=== PATIENT | female | born 1965 | race Caucasian/White ===

== ENCOUNTER → 2016-09-06 | Outpatient (CLI) | payer OTHER ==
[~2016-09-06] MED LIST: ACYCLOVIR 400400 MG PO; LOTRIMIN AF12 GM TP; NOHOMEMEDICATIONS; NORCO 5-325 TA1 EACH PO; NORFLEX100 MG PO; PHENERGAN 25 MG25 M1 PO; PRILOSEC40 MG PO; ULTRAM 50MG TAB50 MG PO; VICODIN 5-5001 EACH PO
== END ==
LOC: RAD 13:40
DX: Z12.31 Encounter for screening mammogram for malignant neoplasm of breast (principal)

== ENCOUNTER → 2016-12-19 | Outpatient (CLI) | payer OTHER | LOC: RAD 12:05 | DX: M25.511 Pain in right shoulder (principal); M25.561 Pain in right knee ==

== ENCOUNTER → 2019-05-25 | Outpatient (CLI) | payer OTHER | LOC: BC 10:22 | DX: Z12.31 Encounter for screening mammogram for malignant neoplasm of breast (principal) ==

== ENCOUNTER → 2019-05-28 | Outpatient (CLI) | payer OTHER | LOC: RAD 14:23 | DX: M76.9 Unspecified enthesopathy, lower limb, excluding foot (principal) ==

== ENCOUNTER → 2020-06-30 | Outpatient (CLI) | payer OTHER | LOC: RAD 07:48 → BC 07:56 | PROVIDERS: ATTEND Family Medicine | DX: Z12.31 Encounter for screening mammogram for malignant neoplasm of breast (principal) ==